=== PATIENT | female | born 1955 | race Hispanic/Latino ===

== ENCOUNTER 2018-01-21 13:38 | Observation (INO) | payer MEDICAID ==
[~2018-01-21] VITALS: Ht 154.9 cm; Wt 76.2 kg
[2018-01-21] MEDS ORDERED: VANCOMYCIN 1GM+NS 250ML 250 ML IV ONE (14:15)
[2018-01-21] MEDS ORDERED: CEFTRIAXONE SODIUM 1 GM ONE (14:15)
[2018-01-21 14:18] LABS: BASOPHILS % (AUTO) 0.7 % (0.0-5.0); EOSINOPHILS % (AUTO) 0.5 % (0.0-8.0); HEMATOCRIT 36.2 % (36-48); LYMPHOCYTES % (AUTO) 15.2 % (21.0-51.0); MEAN CORPUSCULAR HEMOGLOBIN 30.8 pg (27.0-33.0); MEAN CORPUSCULAR HGB CONC 33.8 g/dL (32.0-36.0); MEAN CORPUSCULAR VOLUME 91.2 fL (79-99); MONOCYTES % (AUTO) 7.7 % (3.0-13.0); NEUTROPHILS % (AUTO) 75.9 % (40.0-77.0); PLATELET COUNT (AUTO) 207 K/uL (130-400); RED BLOOD CELL COUNT(AUTO) 3.97 MIL/uL (4.00-5.50); RED CELL DISTRIBUTION WIDTH 14.2 % (11.0-15.5); WHITE BLOOD COUNT (AUTO) 12.5 K/uL (4.8-10.8)
[2018-01-21 14:30] LABS: CREATININE 1.1 mg/dL (0.5-1.5); POTASSIUM 4.8 mmol/L (3.5-5.1)
[2018-01-21 14:35] LABS: ALBUMIN 3.8 g/dL (3.5-5.0); BILIRUBIN,TOTAL 0.6 mg/dL (0.2-1.0); TOTAL PROTEIN, SERUM 7.8 g/dL (6.0-8.3)
[2018-01-21 16:30] VITALS: BP 153/57
[2018-01-21] MEDS: INSULIN R PO SS1 SQ SCH ×2 (16:30→20:25)
[2018-01-21] MEDS ORDERED: GLUCAGON 1MG KIT 1 MG ML IM PRN (16:30)
[2018-01-21] MEDS ORDERED: DEXTROSE 50%-WATER 50 ML DISP.SYRIN IV PRN (16:30)
[2018-01-21] MEDS ORDERED: COMPOUND IV REFRIGERATED 1 EACH IVSOLN MISC PRN (16:30)
[2018-01-21] MEDS: ACETAMINOPHEN 325 MG TAB PO PRN (17:39)
[2018-01-21] MEDS: ENOXAPARIN SODIUM 30 MG/0.3 ML SQ SCH (18:00)
[2018-01-21 19:50] VITALS: BP 160/72
[2018-01-21] MEDS: DOXYCYCLINE HYCLATE 100 MG TABLET PO SCH (20:20)
[2018-01-21] MEDS: CEFAZOLIN SODIUM 1 GM VIAL IVP SCH (20:20)
[2018-01-21 23:30] VITALS: BP 154/71
[2018-01-22] MEDS ORDERED: ATOR10TA69 PO (02:01)
[2018-01-22] MEDS ORDERED: METO25TA6 PO (02:01)
[2018-01-22] MEDS ORDERED: FESO8TAB PO (02:01)
[2018-01-22] MEDS ORDERED: DONE10TA43 PO (02:01)
[2018-01-22] MEDS ORDERED: GLYB1TAB3 PO (02:01)
[2018-01-22] MEDS ORDERED: MEMA10TA20 PO (02:01)
[2018-01-22] MEDS ORDERED: INSU100V12 SQ (02:01)
[2018-01-22] MEDS ORDERED: INVOK100TB PO (02:01)
[2018-01-22] MEDS ORDERED: ESCI10TA54 PO (02:01)
[2018-01-22 03:45] VITALS: BP 165/57
[2018-01-22] MEDS: CEFAZOLIN SODIUM 1 GM VIAL IVP SCH ×3 (04:28→20:41)
[2018-01-22 05:22] LABS: HEMATOCRIT 35.1 % (36-48); MEAN CORPUSCULAR HEMOGLOBIN 30.5 pg (27.0-33.0); MEAN CORPUSCULAR HGB CONC 33.6 g/dL (32.0-36.0); MEAN CORPUSCULAR VOLUME 90.7 fL (79-99); PLATELET COUNT (AUTO) 206 K/uL (130-400); RED BLOOD CELL COUNT(AUTO) 3.87 MIL/uL (4.00-5.50); RED CELL DISTRIBUTION WIDTH 13.9 % (11.0-15.5)
[2018-01-22 05:33] LABS: CREATININE 0.9 mg/dL (0.5-1.5)
[2018-01-22] MEDS: INSULIN R PO SS1 SQ SCH ×4 (06:32→21:00)
[2018-01-22 07:30] VITALS: BP 171/61
[2018-01-22] MEDS: [UNRECOGNIZED DRUG - OTHER] IV SCH (08:36)
[2018-01-22] MEDS: VANCOMYCIN IV SCH (08:36)
[2018-01-22] MEDS: DOXYCYCLINE HYCLATE 100 MG TABLET PO SCH ×2 (08:36→20:41)
[2018-01-22] MEDS: ENOXAPARIN SODIUM 30 MG/0.3 ML SQ SCH (08:39)
[2018-01-22] MEDS: ACETAMINOPHEN 325 MG TAB PO PRN (08:49)
[2018-01-22 11:00] VITALS: BP 157/60
[2018-01-22] MEDS: MORPHINE SULFATE 2 MG/ML 1ML SYG IVP PRN ×2 (14:47→18:32)
[2018-01-22 16:00] VITALS: BP 168/72
[2018-01-22] MEDS ORDERED: TRAMADOL HCL 50 MG TABLET PO PRN (19:15)
[2018-01-22 19:25] VITALS: BP 172/78
[2018-01-22 19:30] VITALS: BP 135/78
[2018-01-22] MEDS: GLYBURIDE/METFORMIN HCL 5/500MG TABLET PO SCH (20:41)
[2018-01-22] MEDS: MEMANTINE HCL 5 MG TABLET PO SCH (20:41)
[2018-01-22] MEDS: METOPROLOL TARTRATE 25 MG TAB PO SCH (20:41)
[2018-01-22] MEDS ORDERED: DONEPEZIL HCL 5 MG TAB PO SCH (21:00)
[2018-01-22] MEDS: INSULIN GLARGINE 100 UNITS/ML 10 ML VIAL SQ SCH (21:34)
[2018-01-23] MEDS ORDERED: VANCOMYCIN 1GM+NS 250ML 250 ML IV ONE (01:24)
[2018-01-23] MEDS: [UNRECOGNIZED DRUG - OTHER] IV SCH (02:06)
[2018-01-23] MEDS: VANCOMYCIN IV SCH (02:06)
[2018-01-23 04:25] VITALS: BP 145/61
[2018-01-23] MEDS: CEFAZOLIN SODIUM 1 GM VIAL IVP SCH ×2 (04:44→12:36)
[2018-01-23 07:00] VITALS: BP 143/57
[2018-01-23] MEDS: MEMANTINE HCL 5 MG TABLET PO SCH (08:57)
[2018-01-23] MEDS: GLYBURIDE/METFORMIN HCL 5/500MG TABLET PO SCH (08:57)
[2018-01-23] MEDS: METOPROLOL TARTRATE 25 MG TAB PO SCH (08:57)
[2018-01-23] MEDS: DOXYCYCLINE HYCLATE 100 MG TABLET PO SCH (08:57)
[2018-01-23] MEDS ORDERED: ATORVASTATIN CALCIUM 10 MG TABLET PO SCH (09:00)
[2018-01-23] MEDS ORDERED: Escitalopram Oxalate 10 MG PO SCH (09:00)
[2018-01-23] MEDS: ENOXAPARIN SODIUM 30 MG/0.3 ML SQ SCH (09:00)
[2018-01-23] MEDS: INSULIN GLARGINE 100 UNITS/ML 10 ML VIAL SQ SCH (09:05)
[2018-01-23 11:00] VITALS: BP 168/69
[2018-01-23] MEDS: INSULIN R PO SS1 SQ SCH (11:30)
[2018-01-23 15:59] VITALS: BP 140/61
[2018-01-24] MEDS ORDERED: PREDNISONE 20 MG TABLET PO SCH (09:00)
== END 2018-01-23 18:15 | disposition home or self-care (01) ==
LOC: EDH 13:38 → EDHIP 13:39 → OBSVTOIN 13:39 → INTOOBSV 13:39 → 3CH 16:24
PROVIDERS: ADMIT Internal Medicine Infectious Disease; ATTEND Internal Medicine Infectious Disease
DX: L03.113 Cellulitis of right upper limb (principal); F03.90 Unspecified dementia, unspecified severity, without behavioral disturbance, psychotic disturbance, mood disturbance, and anxiety; D72.829 Elevated white blood cell count, unspecified; R53.81 Other malaise; E11.9 Type 2 diabetes mellitus without complications; I10 Essential (primary) hypertension; I25.10 Atherosclerotic heart disease of native coronary artery without angina pectoris; S60.519A Abrasion of unspecified hand, initial encounter; Z96.651 Presence of right artificial knee joint; X58.XXXA Exposure to other specified factors, initial encounter; Y93.89 Activity, other specified; Y92.89 Other specified places as the place of occurrence of the external cause; Z83.3 Family history of diabetes mellitus; Y99.8 Other external cause status; Z86.718 Personal history of other venous thrombosis and embolism; Z95.5 Presence of coronary angioplasty implant and graft
CPT/HCPCS: 36415 ×2; 71045; 73130; 80048; 80053; 82948 ×8; 83605; 83735; 85025; 85027; 87040 ×2; 96365; 96366; 96372 ×2; 96375 ×2; 96376 ×2; 99285; A4218 ×2; G0378 ×53; J0690 ×6; J0696; J1650 ×2; J3370 ×3; J7030